=== PATIENT | male | born 1995 ===

== ENCOUNTER 2023-12-14 19:37 | Emergency (ER) ==
[~2023-12-14] VITALS: Ht 185.4 cm; Wt 79.4 kg
[2023-12-14 20:30] VITALS: PULSE 58; RESP 20; TEMP 98.3; O2SAT 100
== END 2023-12-15 | disposition left against medical advice (07) ==
LOC: ER 19:45
DX: S61.217A Laceration without foreign body of left little finger without damage to nail, initial encounter (principal); W26.0XXA Contact with knife, initial encounter; Y92.89 Other specified places as the place of occurrence of the external cause